=== PATIENT | male | born 1965 | race Caucasian/White ===

== ENCOUNTER 2017-06-06 12:07 | Outpatient (CLI) | payer OTHER ==
[~2017-06-06 12:07] MED LIST: AMBIEN10 MG PO; NABUMETONE500 MG PO; PERCOCET 5/3251 TAB PO; PROSCAR5 MG PO
== END 2017-06-06 12:17 | disposition home or self-care (01) ==
LOC: RAD 12:07
DX: M25.561 Pain in right knee (principal); M25.562 Pain in left knee

== ENCOUNTER 2017-10-17 14:14 | Outpatient (CLI) | payer OTHER | END 2017-10-17 15:06 | disposition home or self-care (01) | LOC: RAD 14:14 | DX: M25.561 Pain in right knee (principal) ==

== ENCOUNTER 2020-01-17 22:58 | Emergency (ER) | payer OTHER ==
[~2020-01-17] VITALS: Ht 175.3 cm; Wt 88.5 kg
[2020-01-17] MEDS ORDERED: TRAMADOR (23:27)
[2020-01-17] MEDS ORDERED: RESTORIL (23:27)
[2020-01-17] MEDS ORDERED: [UNRECOGNIZED DRUG - OTHER] (23:28)
[2020-01-17] MEDS ORDERED: PROZAC (23:29)
[2020-01-18] MEDS ORDERED: KETO10TA2 PO (00:44)
== END 2020-01-18 01:19 | disposition home or self-care (01) ==
LOC: ER 22:58
DX: S00.03XA Contusion of scalp, initial encounter (principal); S60.212A Contusion of left wrist, initial encounter; W17.89XA Other fall from one level to another, initial encounter; Y93.89 Activity, other specified; Y92.018 Other place in single-family (private) house as the place of occurrence of the external cause; Y99.8 Other external cause status

== ENCOUNTER 2020-12-25 16:40 | Emergency (ER) | payer OTHER ==
[~2020-12-25] VITALS: Ht 152.4 cm; Wt 81.6 kg
[~2020-12-25 16:40] MED LIST changes: +KETO10TA2 PO; +PROZAC; +RESTORIL; +TRAMADOR; +[UNRECOGNIZED DRUG - OTHER]
[2020-12-25] MEDS ORDERED: RESTORIL15 M1 PO (16:51)
[2020-12-25] MEDS ORDERED: PROZAC10 MG PO (16:51)
[2020-12-25] MEDS ORDERED: ALPRAZOLAM ODT0.5 MG PO (16:52)
[2020-12-25] MEDS ORDERED: TRAMADOL HCL E100 MG PO (16:52)
== END 2020-12-25 22:21 | disposition home or self-care (01) ==
LOC: ER 16:40
DX: S30.0XXA Contusion of lower back and pelvis, initial encounter (principal); S80.02XA Contusion of left knee, initial encounter; S70.02XA Contusion of left hip, initial encounter; S60.222A Contusion of left hand, initial encounter; W54.1XXA Struck by dog, initial encounter; Y93.89 Activity, other specified; Y92.010 Kitchen of single-family (private) house as the place of occurrence of the external cause; Y99.8 Other external cause status

== ENCOUNTER 2020-12-26 08:44 | Outpatient (CLI) | payer OTHER ==
[~2020-12-26 08:44] MED LIST changes: +ALPRAZOLAM ODT0.5 MG PO; +PROZAC10 MG PO; +RESTORIL15 M1 PO; +TRAMADOL HCL E100 MG PO
== END 2020-12-26 08:55 | disposition home or self-care (01) ==
LOC: RAD 08:44
PROVIDERS: ATTEND Internal Medicine
DX: M25.551 Pain in right hip (principal); M25.552 Pain in left hip; M46.1 Sacroiliitis, not elsewhere classified

== ENCOUNTER → 2021-01-09 | Emergency (ER) | payer OTHER ==
[~2021-01-09] VITALS: Ht 175.3 cm; Wt 86.2 kg
== END | disposition left against medical advice (07) ==
LOC: ER 13:08
DX: Z53.20 Procedure and treatment not carried out because of patient's decision for unspecified reasons (principal)

== ENCOUNTER → 2022-01-31 | Emergency (ER) | payer OTHER ==
[~2022-01-31] VITALS: Ht 167.6 cm; Wt 72.6 kg
== END | disposition left against medical advice (07) ==
LOC: ER 15:43
DX: J15.7 Pneumonia due to Mycoplasma pneumoniae (principal); Z91.013 Allergy to seafood

== ENCOUNTER 2023-08-28 19:19 | Emergency (ER) | payer OTHER ==
[~2023-08-28] VITALS: Ht 175.3 cm; Wt 84.8 kg
[2023-08-28] MEDS ORDERED: PERCOCET 10-321 EACH (19:39)
[2023-08-28] MEDS ORDERED: KETOROLAC TROMETHAMINE 60 MG VIAL IM ONE (20:30)
== END 2023-08-28 22:23 | disposition home or self-care (01) ==
LOC: ER 19:20
DX: S93.402A Sprain of unspecified ligament of left ankle, initial encounter (principal); W18.30XA Fall on same level, unspecified, initial encounter; Y93.K1 Activity, walking an animal; Y92.89 Other specified places as the place of occurrence of the external cause; Y99.9 Unspecified external cause status; Z91.013 Allergy to seafood